=== PATIENT | male | born 1955 | race Caucasian/White ===

== ENCOUNTER 2017-11-11 02:31 | Emergency (ER) | payer BC ==
[~2017-11-11] VITALS: Ht 177.8 cm; Wt 74.8 kg
--- NOTE | 2017-11-11 02:46 | NUR ---
Dr. Brody at bedside for MSE.
[2017-11-11] MEDS ORDERED: ROSU5TAB PO (02:51)
[2017-11-11] MEDS ORDERED: MONT5TAB14 PO (02:51)
[2017-11-11] MEDS ORDERED: LISI2.5T2 PO (02:51)
[2017-11-11] MEDS ORDERED: IV NORMAL SALINE 1000 ML BAG IV ONE (03:00)
[2017-11-11] MEDS ORDERED: ONDANSETRON 4 MG/2 ML VIAL IV ONE ×2 (03:00→04:15)
[2017-11-11] MEDS ORDERED: MECLIZINE HCL 25 MG TABLET PO ONE ×2 (03:00→04:15)
[2017-11-11 03:18] LABS: BASOPHILS % (AUTO) 0.4 % (0.0-2.0); EOSINOPHILS % (AUTO) 0.2 % (0.0-7.0); HEMATOCRIT 40.8 % (36.7-47.1); HEMOGLOBIN 13.9 g/dL (12.5-16.3); MEAN CORPUSCULAR HEMOGLOBIN 29.5 uug (23.8-33.4); MEAN CORPUSCULAR HGB CONC 34 g/dL (32.5-36.3); MEAN CORPUSCULAR VOLUME 86.9 fL (73.0-96.2); MONOCYTES # (AUTO) 0.5 K/uL (2.0-10.0); NEUTROPHILS # (AUTO) 6.4 K/uL (1.8-8.9); NEUTROPHILS % (AUTO) 80.4 % (38.5-71.5); PLATELET COUNT (AUTO) 171 K/uL (152-348)
[2017-11-11] MEDS ORDERED: MECLIZINE HCL 25 MG TABLET ONE ×2 (03:18→05:02)
[2017-11-11] MEDS ORDERED: ONDANSETRON 4 MG/2 ML VIAL ONE ×2 (03:18→05:02)
[2017-11-11 03:32] LABS: BILIRUBIN,DIRECT 0.2 mg/dL (0.0-0.2); BILIRUBIN,TOTAL 1.2 mg/dL (0.2-1.0); POTASSIUM 3.9 mmol/L (3.5-5.1); TOTAL PROTEIN, SERUM 7.2 g/dL (6.4-8.2)
--- NOTE | 2017-11-11 03:35 | NUR ---
Pt out of ER for CT.
--- NOTE | 2017-11-11 03:48 | NUR ---
Patient back to ER from CT.
--- NOTE | 2017-11-11 04:00 | NUR ---
Pt provided urine, sent to lab. Pt states he still feels dizzy and nauseous.
[2017-11-11 04:27] LABS: *BILIRUBIN,URIN NEGATIVE (NEGATIVE); *BLOOD, URINE Trace-intact (NEGATIVE); *CLARITY,URINE CLEAR (CLEAR); *COLOR,URINE YELLOW (YELLOW); *KETONES,URINE 1+ (NEGATIVE); *PROTEIN,URINE NEGATIVE (NEGATIVE); *UROBILINOGEN,URINE 0.2 E.U./dl (NORMAL); LEUKOCYTE ESTERASE ,URINE TRACE (NEGATIVE); NITRITE, URINE NEGATIVE (NEGATIVE); PH,URINE 7.5 (5.0-8.0); UGLUCOSE NEGATIVE (NEGATIVE)
[2017-11-11 04:30] LABS: BACTERIA,URINE NONE SEEN /HPF (NONE SEEN); RBC,URINE 0-3 /HPF (0-3); SQUAMOUS EPITHELIAL CELL,UR FEW /HPF (NONE SEEN); WBC,URINE 0-3 /HPF (0-3)
--- NOTE | 2017-11-11 05:05 | NUR ---
IV removed. Catheter intact and site benign. Pressure and 4x4 gauze applied to site. No bleeding noted.
--- NOTE | 2017-11-11 05:13 | NUR ---
PATIENT STATES "MY DIZZINESS IS ALOT BETTER NOW."
--- NOTE | 2017-11-11 05:16 | NUR ---
Patient discharged to home in stable conditon WITH GIRLFRIEND TAKING PATIENT HOME. Written and verbal after care instructions given. Patient verbalizes understanding of instructions. PATIENT WALKED OUT OF ER WITH STEADY GAIT. NO DISTRESS NOTED
== END 2017-11-11 05:16 | disposition home or self-care (01) ==
LOC: ER 02:48
DX: R42 Dizziness and giddiness (principal); E78.5 Hyperlipidemia, unspecified; Z79.899 Other long term (current) drug therapy
CPT/HCPCS: 36415; 70450; 80048; 80076; 81001; 84484; 85025; 85730; 93005; 96361; 96374; 96375; 99285; A4663; J2405 ×2; J7030; J8597 ×2; 70030-TC